=== PATIENT | female | born 1950 | race Caucasian/White ===

== ENCOUNTER 2021-05-17 13:50 | Emergency (ER) | payer MEDICARE, OTHER ==
--- NOTE | 2021-05-17 14:28 | EDM.PDOC ---
ED HPI GENERAL MEDICAL PROBLEM - General Chief Complaint: Syncope Stated Complaint: [facility] Time Seen by Provider: 05/17/21 14:00 Source of Information: Reports: Patient History Limitations: Reports: No Limitations - History of Present Illness INITIAL COMMENTS - FREE TEXT/NARRATIVE: The patient presents by [facility] for syncope. 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 She had lunch and then went to work. She was working for about 2 hours, cleaning the pool and emptying trash. She was going to return the [employer] and she passed out. She has an abrasion to her right face and nose. She was out for maybe a minute. She had no seizure activity. She woke up and was doing good. She has no pain such as headache, neck pain, facial pain, chest pain, abdominal pain, arm or leg pain. This has never happened before. She has a history of hypertension. She has no heart disease. Onset: Sudden Duration: Minutes: Severity: Moderate Improves with: Reports: None Worsens with: Reports: None Associated Symptoms: Reports: Syncope. Denies: Chest Pain, Cough, Fever/Chills, Headaches, Nausea/Vomiting, Shortness of Breath Treatments COMPLIANCE ADMINISTRATOR: Reports: Isotonic Fluid, Other Medication(s) Other Treatments COMPLIANCE ADMINISTRATOR: 300ml NS - Related Data Allergies Allergy/AdvReac Type Severity Reaction Status Date / Time No Known Allergies Allergy Verified 05/17/21 13:58 Home Meds: Home Meds Aspirin [Aspirin EC] 81 mg PO DAILY 05/17/21 [History] Fish Oil/[place]-3 Fatty Acids [Fish Oil 1,000 MG] 1 gm PO DAILY 05/17/21 [History] Losartan [Cozaar] 50 mg PO DAILY 05/17/21 [History] Magnesium 200 mg PO DAILY 05/17/21 [History] atorvaSTATin [Lipitor] 10 mg PO DAILY 05/17/21 [History] Past Medical History HEENT History: Reports: Impaired Vision Cardiovascular History: Reports: High Cholesterol, Hypertension 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 Denies: Chest Pain Endocrine: Reports: No Symptoms GI/Abdominal: Reports: No Symptoms : Reports: No Symptoms Musculoskeletal: Reports: No Symptoms - Physical Exam Exam: See Below Exam Limited By: No Limitations General Appearance: Alert, No Apparent Distress Ears: Normal External Exam Nose: Normal Inspection Head Exam: Other (Large abrasion to the right cheek and right side of her nose. No pain upon palpation. Bones feel stable.) Neck: Normal Inspection Respiratory/Chest: No Respiratory Distress, Lungs Clear, Normal Breath Sounds Cardiovascular: Regular Rate, Rhythm, No Edema, No Murmur GI/Abdominal: Soft, Non-Tender, No Organomegaly, No Mass #1 Interpretation EKG Date: 05/17/21 Time: 13:55 Rhythm: NSR Rate (Beats/Min): 68 [place]: Normal P-Wave: Present QRS: Normal ST-T: Normal QT: Normal EKG Interpretation Comments: Multifocal PVCs Course - Vital Signs Last Recorded V/S: Last Vital Signs Temp 97.4 F 05/17/21 13:52 Pulse 78 05/17/21 14:00 Resp 16 05/17/21 14:00 BP 156/88 H 05/17/21 14:00 Pulse Ox 99 05/17/21 14:00 - Orders/Labs/Meds Orders: Active Orders 24 hr Category Date Time Status EKG Documentation Completion [RC] ASDIRECTED Care 05/17/21 14:14 Active EKG 12 Lead [EK] Stat Ther 05/17/21 14:14 Ordered - Re-Assessments/Exams Free Text/Narrative Re-Assessment/Exam: 05/17/21 14:30 I ordered an EKG and it showed a NSR with some multifocal PVCs. The patient did not want anythine else done. Departure - Departure Time of Disposition: 14:50 Disposition: Home, Self-Care 01 Condition: Good Clinical Impression: Syncope Qualifiers: Syncope type: unspecified Qualified Code(s): R55 - Syncope and collapse Abrasion of face Qualifiers: Encounter type: initial encounter Qualified Code(s): S00.81XA - Abrasion of other part of head, initial encounter - Discharge Information *PRESCRIPTION DRUG MONITORING PROGRAM REVIEWED*: Not Applicable *COPY OF PRESCRIPTION DRUG MONITORING REPORT IN PATIENT MOSES: Not Applicable Forms: ED Department Discharge Additional Instructions: Clean your face with warm soapy water two times per day and apply antibiotic ointment after. Drink plenty of fluids. Take your medications as prescribed. Please return if you are worse. Sepsis Event Note (ED) - Evaluation Sepsis Screening Result: No Definite Risk - Focused Exam Vital Signs: Vital Signs Temp Pulse Resp BP Pulse Ox 05/17/21 14:00 78 16 156/88 H 99 05/17/21 13:52 97.4 F 72 18 158/104 H 99 - My Orders Last 24 Hours: My Active Orders 05/17/21 14:14 EKG Documentation Completion [RC] ASDIRECTED EKG 12 Lead [EK] Stat - Assessment/Plan Last 24 Hours: My Active Orders 05/17/21 14:14 EKG Documentation Completion [RC] ASDIRECTED EKG 12 Lead [EK] Stat
== END 2021-05-17 15:45 | disposition home or self-care (01) ==
LOC: JD.ED 13:50
DX: S00.81XA Abrasion of other part of head, initial encounter (principal); R55 Syncope and collapse; I10 Essential (primary) hypertension; E78.00 Pure hypercholesterolemia, unspecified; E66.9 Obesity, unspecified; Z68.30 Body mass index [BMI] 30.0-30.9, adult; Z79.82 Long term (current) use of aspirin; Z79.899 Other long term (current) drug therapy; X58.XXXA Exposure to other specified factors, initial encounter
CPT/HCPCS: 93005; 93010; 99284; 99284-25